=== PATIENT | female | born 2000 | race Caucasian/White ===

== ENCOUNTER 2025-09-15 08:34 | Emergency (ER) | payer OTHER, SELFPAY ==
[2025-09-15 08:34] VITALS: BP 104/73; PULSE 108; PULSE 99; RESP 14; TEMP 35.6; O2SAT 98; BMI 21.4
--- NOTE | 2025-09-15 09:01 | EDS_ITS ---
HPI History of Present Illness Chief Complaint: Palpitations Informant: patient and parent (Father) Narrative Narrative: 25-year-old female presenting to the emergency room chief complaint of atrial fibrillation. Patient has a history of paroxysmal atrial fibrillation. 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 She states that she went into atrial fibrillation and has yet to go back out of it. She states that she was in contact with her toxicology teacher who prescribed flecainide and needs her observed because she has never had it before. She has had cardiac stress testing which was negative. She is not experiencing shortness of breath leg s welling. She denies any history of electrolyte abnormalities. No known structural heart disease. Father has a history of A-fib. She does not know of any history of QT prolongation. [facility] Medical History (Updated 09/15/25 @ 09:[address] Ruel Lu DO) Atrial fibrillation Home Medications ?Medication ?Instructions ?Recorded ?Last Taken ?Type metoprolol succinate 25 mg 25 mg PO .COMPLEX 09/15/25 09/15/25 History tablet,extended release 24 hr Allergy/AdvReac Type Severity Reaction Status Date / Time No Known Allergies Allergy Verified 09/15/25 08:35 Social History Smoking Status: Never smoker ROS ROS ED Constitutional Constitutional ED: Denies chills or weight loss Eyes Eyes: Denies change in vision or diplopia ENT ENT ED: Denies ear pain, rhinorrhea or sore throat Cardiovascular Cardiovascular: Reports palpitations; Denies chest pain, orthopnea or racing heartbeat Respiratory/Chest Respiratory/Chest: Denies cough, dyspnea or orthopnea Gastrointestinal Gastrointestinal: Denies abdominal pain, diarrhea, nausea or vomiting Genitourinary Genitourinary ED: Denies dysuria, hematuria or urinary frequency Musculoskeletal Musculoskeletal: Denies arthralgias or myalgias Integumentary Denies abscess or rash Neurologic Neurologic: Denies headache(s) or weakness Psychiatric Psychiatric: Denies anxiety, depression, suicidal ideation or suicidal thoughts Endocrine Endocrinology: Denies polydipsia, polyphagia or polyuria Allergic/Immunologic Allergic/Immunologic ED: Denies mouth swelling, tongue swelling or urticaria EXAM Physical Exam Const Vital Signs: 09/15/25 08:34 09/15/25 08:34 09/15/25 09:03 Temperature 96.1 F L Temperature Source Temporal Pulse Rate 99 108 H Respiratory Rate 14 Respiratory Effort Normal Non-Labored Blood Pressure 104/73 Blood Pressure Mean 83 Pulse Ox 98 Oxygen Delivery Method Room Air 09/15/25 10:13 09/15/25 10:40 09/15/25 12:00 Temperature Temperature Source Pulse Rate 100 99 81 Respiratory Rate 16 17 Respiratory Effort Blood Pressure 101/73 106/75 94/53 L Blood Pressure Mean 82 85 65 Pulse Ox 99 100 93 Oxygen Delivery Method Room Air Room Air 09/15/25 12:33 Temperature 98.2 F Temperature Source Pulse Rate 81 Respiratory Rate 17 Respiratory Effort Blood Pressure 94/53 L Blood Pressure Mean 66 Pulse Ox 93 Oxygen Delivery Method Positive well nourished and well developed General Appearance ED: well developed and NAD HEENT Reports normocephalic, head/scalp atraumatic and moist mucous membranes Eyes PERRL and EOMs intact bilaterally Neck no lymphadenopathy, supple and no JVD Resp normal respiratory effort and clear to auscultation bilaterally Cardio no murmurs Rate: tachycardic Rhythm: abnormal rhythm irregularly irregular GI normal to inspection, nondistended, normoactive bowel sounds and non-tender Palpation: soft Back/Spine no CVA tenderness and normal ROM Extremity normal to inspection General Extremety ED: Negative for edema General Extremity: Negative for edema Neuro oriented x3 and CN's II-XII intact bilaterally Sensorium / Orientation: alert Motor Exam: strength 5/5 throughout Psych mental status grossly normal Mood & Affect: Negative for depressed or tearful Skin no rashes or lesions noted and no wounds MDM MDM MDM Narrative Medical decision making narrative: Differential diagnosis includes cardiac dysrhythmia (A-fib A-fib with RVR) QT prolongation electrolyte abnormalities Initial baseline EKG shows A-fib with RVR at a rate of 111. QT interval does not appear prolonged. Patient potassium magnesium are within normal limits. Patient took her dose of flecainide at 0950 hrs. I went back to reassess the patient at about 1040 hrs. and the patient converted back into a sinus. I was able to get a rhythm strip printed of the change. We will continue to monitor t he patient for just over 2 hours and then obtain a repeat EKG. patient has been resting comfortably and has been in sinus rhythm for over an hour. She is going to be discharged home. A copy of her EKGs were given to her to give to her toxicology teacher. She is to continue to be in contact with them and follow their directions on medications. History & Record Review Discussion w/independent historian: Patient and Family Lab Data Attestation: I reviewed the patient's lab results. Labs: Laboratory Results - last 24 hr 09/15/25 09:02 Sodium 138 Potassium 3.8 Chloride 104 Carbon Dioxide 24.6 Anion Gap 9 BUN 13 Creatinine 0.64 L Estim Creat Clear Calc 108.13 Est GFR (MDRD) Non-Af 128 BUN/Creatinine Ratio 20.2 H Glucose 89 Calcium 9.2 Magnesium 2.1 EKG Initial EKG: Attestation: I personally reviewed and interpreted this EKG as follows: Comments: A-fib with RVR ventricular rate of 111 bpm Follow-up EKG: Attestation: I personally reviewed and interpreted this EKG as follows: Interpretation: Sinus Rhythm Comments: Normal sinus rhythm with a ventricular rate of 79 bpm. No significant QT prolongation is seen Discharge Plan Triage Chief Complaint: Palpitations ED Provider: Ruel Lu Dx/Rx/DC Orders Clinical Impression: AF (paroxysmal atrial fibrillation), Encounter for monitoring flecainide therapy Instructions: A-Fib Prescriptions: No Action metoprolol succinate 25 mg tablet extended release 24 hr 25 mg PO .COMPLEX Rx Instructions: 25 mg orally 25mg morning and 50mg at night; Primary Care Provider: Care Physician,No Primary Activity Restrictions/Additional Instructions: Follow-up with your toxicology teacher as scheduled. Continue home medications as they have prescribed them Print Language: Yi Disposition Disposition: Home, Self Care Discharge Date/Time: 09/15/25 12:38
[2025-09-15 09:36] LABS: Anion Gap 9 (5-15); BUN 13 mg/dL (4-19); BUN/Creat Ratio 20.2 RATIO (10-20); Calcium,Total 9.2 mg/dL (7.6-11.0); Carbon Dioxide 24.6 mmol/L (21.0-32.0); Chloride 104 mmol/L (98-108); Estimated Creatinine Clearance 108.13 ml/min (50-250); Glucose 89 mg/dL (70-99); Magnesium 2.1 mg/dL (1.5-2.2); Potassium 3.8 mmol/L (3.3-5.1)
--- NOTE | 2025-09-15 09:51 | ED.RN ---
patient took 3 tablets of 100mg FLECAINIDE PO with water. tolerated well call light within reach.
[2025-09-15 10:13] VITALS: BP 101/73; PULSE 100; O2SAT 99
[2025-09-15 10:40] VITALS: BP 106/75; PULSE 99; RESP 16; O2SAT 100
[2025-09-15 12:00] VITALS: BP 94/53; PULSE 81; RESP 17; O2SAT 93
[2025-09-15 12:33] VITALS: BP 94/53; PULSE 81; RESP 17; TEMP 36.8; O2SAT 93
== END 2025-09-15 12:38 | disposition home or self-care (01) ==
PROVIDERS: Emergency Provider Emergency Medicine; Visit Provider Emergency Medicine
DX: I48.0 Paroxysmal atrial fibrillation (principal); R00.2 Palpitations; Z51.81 Encounter for therapeutic drug level monitoring
CPT/HCPCS: 80048; 83735; 93005; 99284; A4216